=== PATIENT | female | born 2005 | race Caucasian/White ===

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

== ENCOUNTER 2025-01-27 18:14 | Emergency (ER) | payer BC, MEDICAID, SELFPAY ==
[2025-01-27 18:19] VITALS: BP 143/89; PULSE 96; RESP 14; TEMP 36.7; O2SAT 98; BMI 39.9
[2025-01-27 19:31] LABS: Hematocrit 38.2 % (36-47); Hemoglobin 12.80 g/dL (12.4-14.8); Mean Corpuscular HGB Conc 33.5 g/dL (30-55); Mean Corpuscular Hemoglobin 30.8 pg (27-33); Mean Corpuscular Volume 92.0 fl (85-98); Nucleated Red Blood Cells % 0 %; Platelet Count 285 10^3/cmm (157-399); Red Blood Count 4.15 10^6/uL (3.85-5.65); White Blood Count 13.99 10^3/uL (4.5-13.0)
[2025-01-27 20:03] VITALS: BP 127/108; PULSE 108; RESP 18; O2SAT 96
[2025-01-27 20:07] LABS: Alanine Aminotransferase 41 U/L (0-33); Albumin Level 4.2 g/dL (3.5-5.2); Alkaline Phosphatase 83 U/L (35-105); Anion Gap 15.0 (5-19); Aspartate Amino Transferase 22 U/L (0-32); Blood Urea Nitrogen 11 mg/dL (6-20); Calcium 9.4 mg/dL (8.5-10.5); Carbon Dioxide 22 mmol/L (22-29); Chloride 103 mmol/L (98-107); Creatinine Clr Calc Pharmacy 185.0938; Globulin 3.1 g/dL (1.3-4.6); Glucose 112 mg/dL (65-115); Osmolality Calculated 282 mOsm/kg (285-295); Potassium 4.0 mmol/L (3.5-5.1); Sodium 136 mmol/L (136-145); Total Protein 7.3 g/dL (6.6-8.7)
[2025-01-27 21:21] LABS: Glucose Urine UA Negative (Normal); Nitrate Urine Positive (Negative); Specific Gravity, Urine 1.016 (1.005-1.030)
[2025-01-27 21:22] LABS: Add Urine Microscopic? YES; UA Slide Review UA Slide Review Perf
[2025-01-27 21:23] VITALS: BP 125/89; PULSE 100; RESP 16; O2SAT 97
--- NOTE | 2025-01-27 22:52 | W.ED.FEMALGU ---
HPI - Female Genitourinary General: Chief complaint: Vaginal Bleeding Stated complaint: period for 14 days. filling a pad /hr. pain Time Seen by Provider: 01/27/25 19:43 History of Present Illness: 19 yo F with 14 days of heavy vaginal bleeding. Pt reports no periods for ~2 years prior. Started Sprintec 3 days ago to stop bleeding, but bleeding has worsened since initiation. Soaking maxi pads nearly every hour, estimates ~5?6 pads/day with clots. Reports dizziness and chills. Denies SOB, chest pain, or syncope. Crampy pelvic pain. Never . Denies recent pregnancies. Sprintec prescribed by ?Jamila.? Pt appears frustrated but cooperative. Related Data Home Medications ?Medication ?Instructions ?Recorded ?Confirmed Control PO 03/30/22 07/03/24 omeprazole 20 mg capsule,delayed 20 mg PO BID 03/30/22 07/03/24 release Previous Rx's ?Medication ?Instructions ?Recorded dicyclomine 20 mg tablet 20 mg PO TID #20 tabs 07/03/24 tranexamic acid 650 mg tablet 650 mg PO BID 6 days #12 tabs 01/27/25 Allergies Allergy/AdvReac Type Severity Reaction Status Date / Time No Known Allergies Allergy Verified 01/27/25 18:24 PFSH ED PFSH: Medical History (Updated 01/27/25 @ 22:54 by Doyle Bardales MD) Influenza A Otitis media of left ear Social History Smoking and tobacco/nicotine status: never used tobacco/nicotine Physical Exam Const: COMMON NORMALS: no acute distress, patient oriented x3 and alert HENMT: COMMON NORMALS: normocephalic and atraumatic HEAD & SCALP: normocephalic and atraumatic Eye: COMMON NORMALS: Equal, round and reactive pupils present, EOMs intact bilaterally and no scleral icterus PUPIL: Yes Equal, round and reactive pupils present Resp: COMMON NORMALS: normal respiratory effort and No retractions Cardio: COMMON NORMALS: regular rate, regular rhythm and No murmurs present (Cardio) RATE: regular rate RHYTHM: regular rhythm GI: COMMON NORMALS: Normal to inspection, nondistended, normoactive bowel sounds present, Soft to palpation and non-tender PALPATION: Yes Soft to palpation Neuro: COMMON NORMALS: patient oriented x3 SENSORIUM/ORIENTATION: Yes alert Skin: COMMON NORMALS: no rashes or lesions noted GENERAL SKIN EXAM: no rashes or lesions noted Course Vital Signs: Vital signs: Vital Signs Temperature 98.1 F 01/27/25 18:19 Pulse Rate 100 01/27/25 21:23 Respiratory Rate 16 01/27/25 21:23 Blood Pressure 125/89 01/27/25 21:23 Pulse Oximetry 97 01/27/25 21:23 Oxygen Delivery Me thod Room Air 01/27/25 20:03 MDM - Female Medical Decision Making 19 yo F with 14 days of heavy vaginal bleeding, started Sprintec 3 days ago to stop bleeding but symptoms worsened. Soaking pads nearly hourly with clots, dizziness and chills, no shortness of breath, chest pain, or syncope. No prior pregnancies; amenorrhea for ~2 years prior. Vital signs overall stable: BP 143/89, HR mid-90s, afebrile, SpO2 98% RA. Physical exam notable for clear lungs, soft non-tender abdomen, borderline tachycardia. Labs reviewed show hemoglobin 12.8 today. Spoke with on-call ORTHOTICS PROSTHETICS ASSISTANT who recommended that she continue taking Sprintec and in addition start taking tranexamic acid 6 and 50 mg twice daily for 5 days. Patient is agreeable to the plan and will be discharged in stable condition reassured that her hemoglobin level stable despite excessive bleeding subjectively. Lab Data 01/27/25 19:24 01/27/25 19:24 Laboratory Results WBC 13.99 10^3/uL (4.5-13.0) H 01/27/25 19:24 RBC 4.15 10^6/uL (3.85-5.65) 01/27/25 19:24 Hgb 12.80 g/dL (12.4-14.8) 01/27/25 19:24 Hct 38.2 % (36-47) 01/27/25 19:24 MCV 92.0 fl (85-98) 01/27/25 19:24 MCH 30.8 pg (27-33) 01/27/25 19: MCHC 33.5 g/dL (30-55) 01/27/25 19:24 RDW 11.6 % (12.1-15.1) L 01/27/25 19:24 Plt Count 285 10^3/cmm (157-399) 01/27/25 19:24 MPV 10.4 fL (7.4-10.4) 01/27/25 19:24 Neut % (Auto) 69.2 % 01/27/25 19:24 Lymph % (Auto) 25.9 % 01/27/25 19:24 Gaston % (Auto) 3.4 % 01/27/25: Eos % (Auto) 0.7 % 01/27/25: Baso % (Auto) 0.5 % 01/27/25: Neut # (Auto) 9.69 10^3/uL (1.8-8.0) H 01/27/25: Lymph # (Auto) 3.6 10^3/uL (1.5-6.5) 01/27/25: Gaston # (Auto) 0.5 10^3/uL (0.2-0.9) 01/27/25: Eos # (Auto) 0.1 10^3/uL (0.0-0.8) 01/27/25: Baso # (Auto) 0.1 10^3/uL (0.0-0.1) 01/27/25: Nucleated RBC % (auto) 0 % 01/27/25: Nucleated RBCs # 0.0 /100WBC 01/27/25 19:24 Sodium 136 mmol/L (136-145) 01/27/25 19: Potassium 4.0 mmol/L (3.5-5.1) 01/27/25: Chloride 103 mmol/L (98-107) 01/27/25 19:24 Carbon Dioxide 22 mmol/L (22-29) 01/27/25 19:24 Anion Gap 15.0 (5-19) 01/27/25 19:24 BUN 11 mg/dL (6-20) 01/27/25 19:24 Creatinine 0.6 mg/dL (0.5-0.9) 01/27/25 19:24 GFR Calculation 128.8 mL/min (90-130) 01/27/25:24 Glucose 112 mg/dL (65-115) 01/27/25: Calculated Osmolality 282 mOsm/kg (285-295) L 01/27/25 19:24 Calcium 9.4 mg/dL (8.5-10.5) 01/27/25 19:24 Total Bilirubin 0.2 mg/dL (0.15-1.2) 01/27/25 19:24 AST 22 U/L (0-32) 01/27/25 19:24 ALT 41 U/L (0-33) H 01/27/25 19:24 Alkaline Phosphatase 83 U/L (35-105) 01/27/25 19:24 Total Protein 7.3 g/dL (6.6-8.7) 01/27/25 19: Albumin 4.2 g/dL (3.5-5.2) 01/27/25 19: Globulin 3.1 g/dL (1.3-4.6) 01/27/25 19:24 Urine Color Red (Yellow) A 01/27/25 19:49 Urine Appearance Turbid (CLEAR) A 01/27/25 19:49 Urine pH (5-7) 01/27/25 19:49 Ur Specific Elizabeth 1.016 (1.005-1.030) 01/27/25 19:49 Urine Protein 2+ (Negative) A 01/27/25 19:49 Urine Glucose (UA) Negative (Normal) 01/27/25 19:49 Urine Ketones Negative (Negative) 01/27/25 19:49 Urine Blood 3+ (Negative) A 01/27/25 19:49 Urine Nitrate Positive (Negative) A 01/27/25 19:49 Urine Bilirubin 2+ (Negative) H 01/27/25 19:49 Urine Urobilinogen 0.2 mg/dL (Negative) 01/27/25 19:49 Ur Leukocyte Esterase 3+ (Negative) A 01/27/25 19:49 Urine RBC Too numerous to cnt /hpf (0-2) H 01/27/25 19:49 Urine WBC >100 /hpf (0-5) H 01/27/25 19:49 Ur Squamous Epith Cells 0-5 /hpf (0-5) 01/27/25 19:49 Amorphous Sediment Not Reportable 01/27/25 19:49 Urine Bacteria 1+ /hpf (NONE) H 01/27/25 19:49 Hyaline Casts 0-4 /lpf H 01/27/25 19:49 No radiology studies performed this visit Discharge Plan Discharge Patient Disposition: Home Clinical Impression: Dysfunctional uterine bleeding Condition: Stable Prescriptions: New tranexamic acid 650 mg tablet 650 mg PO BID 6 Days Qty: 12 0RF No Action dicyclomine 20 mg tablet 20 mg PO TID Qty: 20 0RF omeprazole 20 mg capsule,delayed release(DR/EC) 20 mg PO BID Control PO Discharge Orders: Discharge ED (Routine); Ordered 01/27/25 Ordered By: Doyle Bardales Referrals: Jamila Pavon FNP [Primary Care Provider, Nurse Practitioner] Eitan Moser MD [Physician, ORTHOTICS PROSTHETICS ASSISTANT] Referral Note: seen in ED, heavy bleeding, gave TXA as per our discussion Discharge Diet: Usual diet Discharge Activity: Increase activity as tolerated Patient Instructions: Abnormal (Dysfunctional) Uterine Bleeding (ED), Patient Portal & Bhupinder Instructions Activity Restrictions/Additional Instructions: Please continue taking your control pill as prescribed and follow-up with ORTHOTICS PROSTHETICS ASSISTANT as soon as possible Print Language: Fijian Coding Level of Care Code ED Land Development Manager for Rossy Rutherford
== END 2025-01-27 21:29 | disposition home or self-care (01) ==
PROVIDERS: Emergency Provider Student in an Organized Health Care Education/Training Program; PCP Nurse Practitioner Family
DX: N93.8 Other specified abnormal uterine and vaginal bleeding (principal)
CPT/HCPCS: 36415; 80053; 81001; 85025; 87086; 99283

== ENCOUNTER 2025-02-01 10:29 | Outpatient (CLI) | payer BC, MEDICAID, SELFPAY ==
--- NOTE | 2025-02-01 10:37 | US_ITS ---
WS: [id number] US pelv w/transvag [id number] HISTORY: SECONDARY AMENORRHEA/IRREGULAR MENSES COMPARISON: None available. Limited transabdominal imaging with a nondistended bladder. Uterus: 8.9 cm x 4.9 cm x 3.7 cm. Normal size anteverted uterus. No fibroid or mass. Endometrium: 0.7 cm. Normal. Right ovary: 3.7 cm x 3.4 cm x 2.3 cm. Normal size and vascularity, no cystic or solid masses. Left ovary: 2.4 cm x 2.3 cm x 1.8 cm. Normal size and vascularity, no cystic or solid masses. No free fluid in the cul-de-sac. US/US pelv w/transvag [id number] IMPRESSION: Normal transvaginal pelvic ultrasound. Normal ovaries. No evidence for PCOS. Normal endometrium.
== END 2025-02-01 10:30 | disposition home or self-care (01) ==
LOC: RAD 10:31
PROVIDERS: PCP Nurse Practitioner Family; Visit Provider Nurse Practitioner Family
DX: N91.1 Secondary amenorrhea (principal); N92.6 Irregular menstruation, unspecified
CPT/HCPCS: 76830; 76856